=== PATIENT | female | born 1995 | race Caucasian/White ===

== ENCOUNTER 2017-06-15 10:25 | Emergency (ER) | payer OTHER ==
[~2017-06-15] VITALS: Ht 149.9 cm; Wt 55.0 kg
[~2017-06-15 10:25] MED LIST: BIOTIN1000 MICRO PO; DEPO-PROVER150 MG/ML IM; Motrin PO; PRENATAL PLUS1 EAC3; Percocet 5/325,Endoc PO; TYLENOL WITH C1 EACH PO
[2017-06-15 10:31] VITALS: BP 126/62
[2017-06-15 11:13] LABS: ADD MIUA? YES; BILIRUBIN NEGATIVE; BLOOD SMALL; COLOR STRAW ((YELLOW)); GLUCOSE (STRIP) NEGATIVE; KETONES NEGATIVE; LEUKOCYTES TRACE; NITRITE NEGATIVE; PROTEIN (STRIP) NEGATIVE; SPECIFIC GRAVITY 1.006 (1.000-1.030); UROBILINOGEN 0.2 MG/DL (0.2-1.0)
[2017-06-15 11:27] LABS: BACTERIA RARE /HPF; EPITHELIAL CELLS 2+ /HPF; MUCUS TRACE /LPF; RED BLOOD CELLS 0-5 /HPF (0-5); UCUL ADDED? NO; WHITE BLOOD CELLS 0-5 /HPF (0-5)
[2017-06-15 11:46] LABS: HEMATOCRIT 36.6 % (36.0-46.0); MCV 71.9 FL (83-99); MEAN PLAT.VOLUME 9.7 uM^3 (9.5-12.4); PLATELET COUNT 298 K/uL (156-360); RBC DIS.WIDTH-CV 14.1 % (11.8-14.6); RBC DIS.WIDTH-SD 35.8 % (39-53); RED BLOOD COUNT 5.09 M/uL (3.80-5.20); WHITE BLOOD COUNT 7.9 K/uL (4.1-10.2)
[2017-06-15 11:49] LABS: CHLORIDE 105 mEq/L (99-109); POTASSIUM 3.9 mEq/L (3.7-5.4); SODIUM 138 mEq/L (136-147)
[2017-06-15 11:52] LABS: GLUCOSE 92 mg/dL (70-99)
[2017-06-15 11:53] LABS: ANION GAP 11 MEQ/L (2-14)
[2017-06-15 11:54] LABS: TOTAL BILIRUBIN 0.5 mg/dL (0.0-1.0)
[2017-06-15 11:55] LABS: ALKALINE PHOSPHATASE 89 IU/L (3-129); GFR ESTIMATE (CALCULATED) > 59 mL/min/
[2017-06-15 11:56] LABS: UREA NITROGEN (BUN) 8 mg/dL (9-23)
[2017-06-15 12:23] LABS: QUANTITATIVE HCG 20933.8 MIU/ML
== END 2017-06-15 12:38 | disposition left against medical advice (07) ==
LOC: EME 10:25
DX: R10.9 Unspecified abdominal pain (principal); Z53.21 Procedure and treatment not carried out due to patient leaving prior to being seen by health care provider
CPT/HCPCS: 80053; 81003; 84702; 85027

== ENCOUNTER 2017-06-24 17:06 | Emergency (ER) | payer OTHER ==
[~2017-06-24] VITALS: Ht 149.9 cm; Wt 52.8 kg
[2017-06-24 17:53] LABS: HEMATOCRIT 36.9 % (36.0-46.0); MCHC 32.2 G/DL (30.0-36.0); MCV 71.4 FL (83-99); MEAN PLAT.VOLUME 9.9 uM^3 (9.5-12.4); PLATELET COUNT 280 K/uL (156-360); RBC DIS.WIDTH-CV 14.3 % (11.8-14.6); RBC DIS.WIDTH-SD 35.8 % (39-53); RED BLOOD COUNT 5.17 M/uL (3.80-5.20); WHITE BLOOD COUNT 7.6 K/uL (4.1-10.2)
[2017-06-24 17:58] LABS: CHLORIDE 104 mEq/L (99-109); POTASSIUM 4.3 mEq/L (3.7-5.4); SODIUM 135 mEq/L (136-147)
[2017-06-24 18:00] LABS: GLUCOSE 93 mg/dL (70-99)
[2017-06-24 18:01] LABS: ANION GAP 10 MEQ/L (2-14)
[2017-06-24 18:03] LABS: GFR ESTIMATE (CALCULATED) > 59 mL/min/
[2017-06-24 18:04] LABS: UREA NITROGEN (BUN) 10 mg/dL (9-23)
[2017-06-24 18:12] LABS: QUANTITATIVE HCG 14606.6 MIU/ML
[2017-06-24 18:16] LABS: ADD MIUA? YES; BILIRUBIN NEGATIVE; BLOOD NEGATIVE; COLOR YELLOW ((YELLOW)); GLUCOSE (STRIP) NEGATIVE; KETONES NEGATIVE; LEUKOCYTES NEGATIVE; NITRITE NEGATIVE; PROTEIN (STRIP) NEGATIVE; SPECIFIC GRAVITY 1.012 (1.000-1.030); UROBILINOGEN 0.2 MG/DL (0.2-1.0)
[2017-06-24 18:21] LABS: BACTERIA NONE SEEN /HPF; EPITHELIAL CELLS RARE /HPF; MUCUS NONE SEEN /LPF; RED BLOOD CELLS 0-5 /HPF (0-5); UCUL ADDED? NO; WHITE BLOOD CELLS 0-5 /HPF (0-5)
[2017-06-24 19:49] VITALS: BP 113/71
== END 2017-06-24 20:30 | disposition home or self-care (01) ==
LOC: EME 17:06
PROVIDERS: Physician Assistant
DX: O20.8 Other hemorrhage in early pregnancy (principal); Z3A.01 Less than 8 weeks gestation of pregnancy; Z87.891 Personal history of nicotine dependence
CPT/HCPCS: 76801; 80048; 81003; 84702; 85027; 99281; 99285

== ENCOUNTER 2017-07-17 12:39 | Emergency (ER) | payer OTHER ==
[~2017-07-17] VITALS: Ht 149.9 cm; Wt 54.5 kg
[2017-07-17 13:32] LABS: HEMATOCRIT 37.2 % (36.0-46.0); MCH 23.2 PG (29.0-34.0); MCHC 33.1 G/DL (30.0-36.0); MCV 70.1 FL (83-99); PLATELET COUNT 276 K/uL (156-360); RBC DIS.WIDTH-CV 14.2 % (11.8-14.6); RBC DIS.WIDTH-SD 34.9 % (39-53); RED BLOOD COUNT 5.31 M/uL (3.80-5.20); WHITE BLOOD COUNT 9.9 K/uL (4.1-10.2)
[2017-07-17 13:37] LABS: CHLORIDE 104 mEq/L (99-109); POTASSIUM 3.6 mEq/L (3.7-5.4); SODIUM 137 mEq/L (136-147)
[2017-07-17 13:39] LABS: GLUCOSE 87 mg/dL (70-99)
[2017-07-17 13:40] LABS: ANION GAP 10 MEQ/L (2-14)
[2017-07-17 13:41] LABS: TOTAL BILIRUBIN 0.4 mg/dL (0.0-1.0)
[2017-07-17 13:43] LABS: ALKALINE PHOSPHATASE 61 IU/L (3-129); GFR ESTIMATE (CALCULATED) > 59 mL/min/
[2017-07-17 13:44] LABS: UREA NITROGEN (BUN) 7 mg/dL (9-23)
[2017-07-17 14:10] LABS: QUANTITATIVE HCG 52286.4 MIU/ML
[2017-07-17 17:32] VITALS: BP 105/58
== END 2017-07-17 17:25 | disposition home or self-care (01) ==
LOC: EME 12:39
PROVIDERS: Emergency Medicine
DX: O26.891 Other specified pregnancy related conditions, first trimester (principal); R10.9 Unspecified abdominal pain; V49.50XA Passenger injured in collision with unspecified motor vehicles in traffic accident, initial encounter; Z3A.10 10 weeks gestation of pregnancy; O99.341 Other mental disorders complicating pregnancy, first trimester; F31.9 Bipolar disorder, unspecified; Z87.891 Personal history of nicotine dependence
CPT/HCPCS: 76801; 80053; 84702; 85027; 86900; 86901; 99281; 99285; J7030

== ENCOUNTER 2017-09-22 04:24 | Outpatient (CLI) | payer OTHER ==
[~2017-09-22] VITALS: Ht 149.9 cm; Wt 59.1 kg
[2017-09-22 04:31] VITALS: BP 122/86
[2017-09-22] MEDS ORDERED: PRENATAL TABLE1 EAC3 PO (05:25)
[2017-09-22] MEDS ORDERED: ZOLOFT25 MG PO (05:25)
[2017-09-22] MEDS ORDERED: IRON325 M1 PO (05:26)
[2017-09-22 05:59] LABS: ADD MIUA? YES; BILIRUBIN NEGATIVE; BLOOD NEGATIVE; COLOR STRAW ((YELLOW)); GLUCOSE (STRIP) NEGATIVE; KETONES NEGATIVE; LEUKOCYTES TRACE; NITRITE NEGATIVE; PROTEIN (STRIP) NEGATIVE; SPECIFIC GRAVITY 1.005 (1.000-1.030); UROBILINOGEN 0.2 MG/DL (0.2-1.0)
[2017-09-22 06:17] LABS: BACTERIA NONE SEEN /HPF; EPITHELIAL CELLS RARE /HPF; MUCUS TRACE /LPF; RED BLOOD CELLS 0-5 /HPF (0-5); UCUL ADDED? NO; WHITE BLOOD CELLS 0-5 /HPF (0-5)
[2017-09-22 06:29] VITALS: BP 116/67
[2017-09-22 06:59] VITALS: BP 125/60
[2017-09-22 07:42] LABS: EOSINOPHIL (%) 0.6 % (0-5); EOSINOPHIL COUNT 0.1 K/uL (0-0.3); HEMATOCRIT 35.1 % (36.0-46.0); IMMATURE GRANULOCYTE (%) 0.4 % (0.0-0.7); IMMATURE GRANULOCYTE COUNT 0.1 K/uL; INSTRUMENT ABS NEUTROPHIL CT 11.3 K/uL; LYMPHOCYTE COUNT 2.1 K/uL (1.0-2.8); MCH 22.8 PG (29.0-34.0); MCHC 32.2 G/DL (30.0-36.0); MCV 70.8 FL (83-99); MEAN PLAT.VOLUME 9.9 uM^3 (9.5-12.4); MONOCYTE (%) 5.6 % (3-12); MONOCYTE COUNT 0.8 K/uL (0-0.8); NEUTROPHIL (%) 78.7 % (45-76); NEUTROPHIL COUNT 11.3 K/uL (1.8-6.4); PLATELET COUNT 331 K/uL (156-360); RBC DIS.WIDTH-CV 15.3 % (11.8-14.6); RBC DIS.WIDTH-SD 38.1 % (39-53); RED BLOOD COUNT 4.96 M/uL (3.80-5.20); WHITE BLOOD COUNT 14.4 K/uL (4.1-10.2)
[2017-09-22 08:10] VITALS: BP 116/58
[2017-09-22 09:11] LABS: AMPHETAMINES QUANT VALUE 0 NG/ML; BARBITUATES QUANT VALUE 0 NG/ML; BENZODIAZEPINES QUANT VALUE 0 NG/ML; BENZODIAZEPINES, URINE SCREEN Negative (200 ng/mL); MARIJUANA QUANT VALUE 0 NG/ML; PHENCYCLIDINE QUANT VALUE 0 NG/ML
[2017-09-22] MEDS ORDERED: MACROBID100 MG PO (10:06)
== END 2017-09-22 10:30 | disposition home or self-care (01) ==
LOC: LDRP-OP 04:24 → 2WEST 04:25
PROVIDERS: Nurse Practitioner
DX: O99.89 Other specified diseases and conditions complicating pregnancy, childbirth and the puerperium (principal); R10.32 Left lower quadrant pain; Z87.440 Personal history of urinary (tract) infections; O99.712 Diseases of the skin and subcutaneous tissue complicating pregnancy, second trimester; L30.9 Dermatitis, unspecified; O99.342 Other mental disorders complicating pregnancy, second trimester; F31.9 Bipolar disorder, unspecified; F41.9 Anxiety disorder, unspecified; O34.219 Maternal care for unspecified type scar from previous cesarean delivery; Z87.891 Personal history of nicotine dependence; Z3A.20 20 weeks gestation of pregnancy
CPT/HCPCS: 59025; 76770; 80306 90; 81003; 85025; 87086; G0378; J2270; J7120

== ENCOUNTER 2017-11-02 14:59 | Outpatient (CLI) | payer OTHER ==
[~2017-11-02] VITALS: Ht 149.9 cm; Wt 59.0 kg
[~2017-11-02 14:59] MED LIST changes: +IRON325 M1 PO; +MACROBID100 MG PO; +PRENATAL TABLE1 EAC3 PO; +ZOLOFT25 MG PO
[2017-11-02 15:37] LABS: ALBUMIN 3.9 g/dL (3.2-4.8); CHLORIDE 104 mEq/L (99-109); SODIUM 135 mEq/L (136-147)
[2017-11-02 15:38] LABS: HEMATOCRIT 38.3 % (36.0-46.0); HEMOGLOBIN 12.8 G/DL (11.9-15.5); MCHC 33.4 G/DL (30.0-36.0); MCV 71.9 FL (83-99); PLATELET COUNT 299 K/uL (156-360); RBC DIS.WIDTH-CV 15.3 % (11.8-14.6); RBC DIS.WIDTH-SD 38.3 % (39-53); RED BLOOD COUNT 5.33 M/uL (3.80-5.20)
[2017-11-02 15:39] LABS: APPEARANCE CLOUDY ((CLEAR)); BILIRUBIN NEGATIVE; BLOOD NEGATIVE; COLOR YELLOW ((YELLOW)); GLUCOSE (STRIP) NEGATIVE; KETONES 80; LEUKOCYTES TRACE; NITRITE NEGATIVE; PROTEIN (STRIP) 30; SPECIFIC GRAVITY 1.023 (1.000-1.030); UROBILINOGEN 0.2 MG/DL (0.2-1.0)
[2017-11-02 15:40] LABS: GLUCOSE 87 mg/dL (70-99); TOTAL PROTEIN 7.7 g/dL (6.4-8.3)
[2017-11-02 15:42] LABS: TOTAL BILIRUBIN 1.1 mg/dL (0.0-1.0)
[2017-11-02 15:43] LABS: ALKALINE PHOSPHATASE 106 IU/L (3-129); CREATININE 0.6 mg/dL (0.6-1.3); GFR ESTIMATE (CALCULATED) > 59 mL/min/
[2017-11-02 15:45] LABS: AST (GOT) 16 IU/L (2-34); UREA NITROGEN (BUN) 11 mg/dL (9-23)
[2017-11-02 15:46] LABS: ALT (GPT) 12 IU/L (3-49)
[2017-11-02 15:47] LABS: BACTERIA RARE /HPF; EPITHELIAL CELLS RARE /HPF; MUCUS TRACE /LPF; RED BLOOD CELLS 0-5 /HPF (0-5); UCUL ADDED? NO; WHITE BLOOD CELLS 0-5 /HPF (0-5)
[2017-11-02 15:54] LABS: QUANTITATIVE HCG 7457.3 MIU/ML
[2017-11-02] MEDS ORDERED: ZOFRAN4 MG PO (18:22)
[2017-11-02] MEDS ORDERED: TAMIFLU75 MG PO (18:22)
[2017-11-02 18:52] VITALS: BP 115/55
[2017-11-02 22:07] LABS: AMPHETAMINE NEGATIVE (500 ng/mL); BARBITURATES NEGATIVE (200 ng/mL); BENZODIAZEPINES NEGATIVE (150 ng/mL); BUPRENORPHINE NEGATIVE (10 ng/mL); COCAINE NEGATIVE (150 ng/mL); METHADONE NEGATIVE (200 ng/mL); METHAMPHETAMINE NEGATIVE (500 ng/mL); OPIATES (MORPHINE) NEGATIVE (100 ng/mL); OXYCODONE NEGATIVE (100 ng/mL); PHENCYCLIDINE NEGATIVE (25 ng/mL); PROPOXYPHENE NEGATIVE (300 ng/mL); THC CANNABINOIDS NEGATIVE (50 ng/mL); TRICYCLIC ANTIDEPRESSANTS NEGATIVE (300 ng/mL)
== END 2017-11-02 21:43 | disposition home or self-care (01) ==
LOC: EME 14:59 → LDRP-OP 14:59 → EME 18:27 → EDSTATUS 18:36 → 2WEST 18:37
PROVIDERS: Midwife
DX: O99.89 Other specified diseases and conditions complicating pregnancy, childbirth and the puerperium (principal); R11.2 Nausea with vomiting, unspecified; O99.322 Drug use complicating pregnancy, second trimester; F14.10 Cocaine abuse, uncomplicated; F11.90 Opioid use, unspecified, uncomplicated; O99.012 Anemia complicating pregnancy, second trimester; D64.9 Anemia, unspecified; O99.342 Other mental disorders complicating pregnancy, second trimester; F31.9 Bipolar disorder, unspecified; O99.712 Diseases of the skin and subcutaneous tissue complicating pregnancy, second trimester; L30.9 Dermatitis, unspecified; Z3A.25 25 weeks gestation of pregnancy; Z87.440 Personal history of urinary (tract) infections; O34.219 Maternal care for unspecified type scar from previous cesarean delivery
CPT/HCPCS: 59025; 80053; 81003; 84702; 85027; 99281; 99284; G0378; J7030

== ENCOUNTER 2018-02-03 05:28 | Inpatient (IN) | payer OTHER ==
[2018-02-03] VITALS (9 sets, daily range): BP systolic 114–133; BP diastolic 60–75
[~2018-02-03] VITALS: Ht 149.9 cm; Wt 64.5 kg
[~2018-02-03 05:28] MED LIST changes: +BUSPAR5 MG PO; +TAMIFLU75 MG PO; +ZOFRAN4 MG PO
[2018-02-03 06:49] LABS: BENZODIAZEPINES, URINE SCREEN Negative (200 ng/mL)
[2018-02-03] MEDS ORDERED: PERCOCET 5/31 TABLET PO (07:33)
[2018-02-03] MEDS ORDERED: MOTRIN800 MG PO (07:33)
[2018-02-04 07:03] LABS: BASOPHIL (%) 0.5 % (0-1); BASOPHIL COUNT 0.1 K/uL (0-0.1); EOSINOPHIL (%) 2.4 % (0-5); EOSINOPHIL COUNT 0.3 K/uL (0-0.3); HEMATOCRIT 30.4 % (36.0-46.0); HEMOGLOBIN 9.9 G/DL (11.9-15.5); IMMATURE GRANULOCYTE (%) 0.4 % (0.0-0.7); LYMPHOCYTE (%) 18.4 % (15-42); LYMPHOCYTE COUNT 1.9 K/uL (1.0-2.8); MCH 23.3 PG (29.0-34.0); MCHC 32.6 G/DL (30.0-36.0); MCV 71.5 FL (83-99); MONOCYTE (%) 7.9 % (3-12); MONOCYTE COUNT 0.8 K/uL (0-0.8); NEUTROPHIL (%) 70.4 % (45-76); NEUTROPHIL COUNT 7.3 K/uL (1.8-6.4); PLATELET COUNT 232 K/uL (156-360); RBC DIS.WIDTH-CV 15.4 % (11.8-14.6); RBC DIS.WIDTH-SD 38.5 % (39-53); RED BLOOD COUNT 4.25 M/uL (3.80-5.20); WHITE BLOOD COUNT 10.4 K/uL (4.1-10.2)
[2018-02-04 07:40] VITALS: BP 120/67
[2018-02-04 10:28] LABS: HEMOGLOBIN A1c (GLYCOHEMOGLOB) 5.2 % (Below 5.7)
[2018-02-04 11:45] VITALS: BP 114/62
[2018-02-04 15:19] VITALS: BP 117/59
[2018-02-04 19:00] VITALS: BP 130/68
[2018-02-04 23:30] VITALS: BP 113/57
[2018-02-05 03:24] VITALS: BP 99/57
== END 2018-02-05 16:10 | disposition home or self-care (01) | DRG 765 ==
LOC: 2WEST 05:28 → 2SOUTH 09:42 → 2WEST 02-05 16:10
PROVIDERS: Obstetrics & Gynecology
PROC: 10D00Z1 Extraction of Products of Conception, Low, Open Approach (ICD-10-PCS; principal; 2018-02-03)
DX: O34.211 Maternal care for low transverse scar from previous cesarean delivery (principal); O99.02 Anemia complicating childbirth; D50.9 Iron deficiency anemia, unspecified; O99.353 Diseases of the nervous system complicating pregnancy, third trimester; G43.909 Migraine, unspecified, not intractable, without status migrainosus; O99.323 Drug use complicating pregnancy, third trimester; F14.90 Cocaine use, unspecified, uncomplicated; F11.90 Opioid use, unspecified, uncomplicated; F12.90 Cannabis use, unspecified, uncomplicated; O99.340 Other mental disorders complicating pregnancy, unspecified trimester; F31.9 Bipolar disorder, unspecified; F41.9 Anxiety disorder, unspecified; Z3A.39 39 weeks gestation of pregnancy; Z37.0 Single live birth
CPT/HCPCS: 36415; 80306 90; 82728; 83036; 85025; 86850; 86900; 86901; J0330; J0690; J1100; J1200; J2270; J2274; J2405; J3010; J7120